=== PATIENT | male | born 1975 | race Caucasian/White ===

== ENCOUNTER 2023-09-22 10:43 | Emergency (ER) | payer MEDICAID, OTHER ==
[~2023-09-22] VITALS: Ht 170.2 cm; Wt 64.1 kg
[2023-09-22] MEDS ORDERED: NS 1,000 ML IV ONE (12:15)
[2023-09-22 12:55] LABS: BASO % 0.4 % (0.0-1.0); EOS # 0.1 10^3/uL (0.0-0.5); EOS % 1.5 % (0.0-3.0); HEMATOCRIT 36.8 % (42.0-52.0); HEMOGLOBIN 12.8 g/dl (13.5-17.5); LYMPH # 0.9 10^3/uL (1.5-5.0); LYMPH % 13.7 % (24.0-44.0); MEAN CORPUSCULAR HEMOGLOBIN 33.7 pg (27.0-33.0); MEAN CORPUSCULAR HGB CONC 34.8 g/dl (32.0-36.5); MEAN CORPUSCULAR VOLUME 96.8 fl (80.0-96.0); MONO # 0.4 10^3/uL (0.0-0.8); MONO % 5.1 % (2.0-8.0); NEUTROPHILS # 5.4 10^3/uL (1.5-8.5); PLATELET COUNT, AUTOMATED 221 10^3/uL (150-450); WHITE BLOOD COUNT 6.8 10^3/uL (4.0-10.0)
[2023-09-22 13:06] LABS: PARTIAL THROMBOPLASTIN TIME 33.8 SECONDS (24.8-34.2)
[2023-09-22 13:12] LABS: INR 1.17; PROTHROMBIN TIME 14.6 SECONDS (12.5-14.5)
[2023-09-22] MEDS ORDERED: ISOVUE-370 76% 100ML VIAL As Ordered ONE (14:07)
[2023-09-22 18:55] VITALS: BP 134/62; TEMP 100.7; O2SAT 97
[2023-09-22] MEDS ORDERED: ALBU2.5V10 NEB (18:55)
[2023-09-22] MEDS ORDERED: DOXY-443 PO (18:55)
[2023-09-22] MEDS ORDERED: ONDA4TAB6 PO (18:55)
[2023-09-22] MEDS ORDERED: BENZ200C70 PO (18:55)
[2023-09-23 13:32] LABS: ALBUMIN 4.2 G/DL (3.9-5.0); ALKALINE PHOSPHATASE 138 U/L (40-129); ALT/SGPT 17 U/L (1-41); AST/SGOT 18 U/L (5-40); BILIRUBIN,DIRECT < 0.2 MG/DL (0.1-0.4); BILIRUBIN,TOTAL < 0.7 MG/DL (0.2-1.3); LIPASE 21 U/L (13-60)
== END 2023-09-22 19:10 | disposition home or self-care (01) ==
LOC: M ED 10:43
DX: J18.9 Pneumonia, unspecified organism (principal); F32.A Depression, unspecified; Z79.52 Long term (current) use of systemic steroids; Z79.83 Long term (current) use of bisphosphonates; Z79.899 Other long term (current) drug therapy
CPT/HCPCS: 71046; 74177; 80047; 80076; 83690; 85025; 85610; 85730; 87040; 87486; 87581; 87633; 87798; 93005; 96360; 96361; 99284; Q9967

== ENCOUNTER → 2023-10-27 | Outpatient (REF) | payer OTHER ==
[~2023-10-27] MED LIST: ALBU2.5V10 NEB; BENZ200C70 PO; DOXY-443 PO; ONDA4TAB6 PO
[2023-10-27 14:10] LABS: CHLAMYDIA DNA AMPLIFICATION NEGATIVE (NEGATIVE); GC DNA AMPLIFICATION NEGATIVE (NEGATIVE)
== END ==
LOC: M LAB REF 11:51
PROVIDERS: ATTEND Nurse Practitioner Family
DX: R30.0 Dysuria (principal)

== ENCOUNTER 2024-01-12 08:56 | Outpatient (RCR) | payer OTHER | END 2024-01-29 | LOC: M PT 08:56 | PROVIDERS: ATTEND Nurse Practitioner Family | DX: M54.16 Radiculopathy, lumbar region (principal) ==

== ENCOUNTER 2024-01-12 10:06 | Emergency (ER) | payer OTHER | END 2024-01-12 11:04 | disposition left against medical advice (07) | LOC: M ED 10:06 | DX: Z53.21 Procedure and treatment not carried out due to patient leaving prior to being seen by health care provider (principal) ==

== ENCOUNTER 2024-06-13 11:16 | Emergency (ER) | payer OTHER ==
[~2024-06-13] VITALS: Ht 170.2 cm; Wt 75.3 kg
[~2024-06-13 11:16] MED LIST changes: +DOXY-323 PO; -DOXY-443 PO; +ONDA-282 PO; -ONDA4TAB6 PO
[2024-06-13 11:52] LABS: BASO % 0.6 % (0.0-1.0); EOS # 0.2 10^3/uL (0.0-0.5); HEMATOCRIT 43.7 % (42.0-52.0); HEMOGLOBIN 15.2 g/dl (13.5-17.5); LYMPH # 1.6 10^3/uL (1.5-5.0); MEAN CORPUSCULAR HEMOGLOBIN 34.2 pg (27.0-33.0); MEAN CORPUSCULAR HGB CONC 34.8 g/dl (32.0-36.5); MEAN CORPUSCULAR VOLUME 98.2 fl (80.0-96.0); MONO # 0.4 10^3/uL (0.0-0.8); MONO % 5.7 % (2.0-8.0); NEUTROPHILS % 64.4 % (36.0-66.0); PLATELET COUNT, AUTOMATED 166 10^3/uL (150-450); RED BLOOD COUNT 4.45 10^6/uL (4.30-6.10); WHITE BLOOD COUNT 6.3 10^3/uL (4.0-10.0)
[2024-06-13] MEDS ORDERED: PRAZ5CAP (11:56)
[2024-06-13] MEDS ORDERED: QUET300T2 (11:56)
[2024-06-13] MEDS ORDERED: DULO1CAP6 (11:56)
[2024-06-13 12:05] LABS: INR 0.96; PARTIAL THROMBOPLASTIN TIME 29.8 SECONDS (24.8-34.2); PROTHROMBIN TIME 12.5 SECONDS (12.5-14.5)
[2024-06-13 12:13] LABS: LIPASE 76 U/L (12-53)
[2024-06-13 12:15] LABS: ALBUMIN 4.2 G/DL (3.2-5.2); ALKALINE PHOSPHATASE 124 U/L (46-116); ALT/SGPT 35 U/L (7.0-40); AST/SGOT 24 U/L (<34); BILIRUBIN,DIRECT < 0.1 MG/DL (<0.4); BILIRUBIN,TOTAL 0.3 MG/DL (0.3-1.2); BLOOD UREA NITROGEN 16 MG/DL (9-23); CALCIUM LEVEL 9.2 MG/DL (8.5-10.1); CARBON DIOXIDE LEVEL 30 MMOL/L (20-31); CHLORIDE LEVEL 106 MMOL/L (98-107); CK-MB VALUE MASS < 1.0 NG/ML (<3.6); CPK CREATINE PHOSPHOKINASE 118 U/L (46-171); CREATININE FOR GFR 1.09 MG/DL (0.70-1.30); GLOMERULAR FILTRATION RATE > 60.0 (>60); GLUCOSE, FASTING 94 MG/DL (60-100); MB/CK RELATIVE INDEX 0.84 (< OR =4); POTASSIUM SERUM 4.6 MMOL/L (3.5-5.1); SODIUM LEVEL 139 MMOL/L (136-145)
[2024-06-13 12:17] LABS: FREE T4 1.07 NG/DL (0.89-1.76); THYROID STIMULATING HORMONE 5.907 uIU/ML (0.55-4.78)
[2024-06-13] MEDS ORDERED: ISOVUE-370 76% 100ML VIAL As Ordered ONE (12:31)
[2024-06-13] MEDS: MORPHINE 4 MG/ML 1ML VIAL IV ONE (13:20)
[2024-06-13 13:48] LABS: CK-MB VALUE MASS < 1.0 NG/ML (<3.6)
[2024-06-13 13:51] LABS: CPK CREATINE PHOSPHOKINASE 115 U/L (46-171); MB/CK RELATIVE INDEX 0.86 (< OR =4)
[2024-06-13] MEDS ORDERED: OMEP40CA4 PO (14:01)
[2024-06-13 14:46] VITALS: BP 122/64; TEMP 97.9; O2SAT 98
== END 2024-06-13 14:54 | disposition home or self-care (01) ==
LOC: M ED 11:16 → EDBD 11:16 → M ED 14:54
DX: R07.9 Chest pain, unspecified (principal); R10.9 Unspecified abdominal pain; I25.2 Old myocardial infarction; R00.1 Bradycardia, unspecified; F17.200 Nicotine dependence, unspecified, uncomplicated; F12.10 Cannabis abuse, uncomplicated; Z88.0 Allergy status to penicillin; Z88.5 Allergy status to narcotic agent; Z91.048 Other nonmedicinal substance allergy status; Z79.52 Long term (current) use of systemic steroids; Z79.899 Other long term (current) drug therapy
CPT/HCPCS: 71045; 71275; 74177; 80047; 80048; 80076; 82550; 82553; 83690; 83880; 84439; 84443; 84484; 85025; 85610; 85730; 93005; 93041; 94760; 96374; 99285; Q9967

== ENCOUNTER → 2024-07-12 | Outpatient (REF) ==
[~2024-07-12] MED LIST changes: +DULO1CAP6; +OMEP40CA4 PO; +PRAZ5CAP; +QUET300T2
== END ==
LOC: M PLAIMG 11:15
PROVIDERS: ATTEND Internal Medicine
DX: M54.50 Low back pain, unspecified (principal)

== ENCOUNTER 2024-09-15 10:36 | Emergency (ER) | payer OTHER ==
[~2024-09-15] VITALS: Ht 170.2 cm; Wt 72.7 kg
[~2024-09-15 10:36] MED LIST changes: -DOXY-323 PO; +DOXY-441 PO
[2024-09-15] MEDS ORDERED: GABA-1172 (10:57)
[2024-09-15] MEDS ORDERED: IBUP200T46 PO (10:58)
[2024-09-15 11:39] LABS: BASO # 0.1 10^3/uL (0.0-0.2); BASO % 0.6 % (0.0-1.0); EOS # 0.1 10^3/uL (0.0-0.5); EOS % 0.9 % (0.0-3.0); HEMATOCRIT 44.1 % (42.0-52.0); HEMOGLOBIN 15.6 g/dl (13.5-17.5); LYMPH % 11.7 % (24.0-44.0); MEAN CORPUSCULAR HEMOGLOBIN 33.8 pg (27.0-33.0); MEAN CORPUSCULAR HGB CONC 35.4 g/dl (32.0-36.5); MEAN CORPUSCULAR VOLUME 95.7 fl (80.0-96.0); MONO # 0.3 10^3/uL (0.0-0.8); MONO % 4.2 % (2.0-8.0); NEUTROPHILS # 6.7 10^3/uL (1.5-8.5); NEUTROPHILS % 82.4 % (36.0-66.0); PLATELET COUNT, AUTOMATED 169 10^3/uL (150-450); RED BLOOD COUNT 4.61 10^6/uL (4.30-6.10); WHITE BLOOD COUNT 8.1 10^3/uL (4.0-10.0)
[2024-09-15] MEDS: SUCRALFATE SUSP 1GM/10ML UD PO ONE (11:58)
[2024-09-15] MEDS: FAMOTIDINE 20 MG TAB PO ONE (11:58)
[2024-09-15 12:14] LABS: ALBUMIN 4.3 G/DL (3.2-5.2); BILIRUBIN,DIRECT 0.1 MG/DL (<0.4); BILIRUBIN,TOTAL 0.5 MG/DL (0.3-1.2); TOTAL PROTEIN 7.5 G/DL (5.7-8.2)
[2024-09-15 13:01] VITALS: BP 145/67; TEMP 97.4; O2SAT 97
[2024-09-15 13:27] LABS: C REACTIVE PROTEIN QUANTITATIV < 0.40 MG/DL (<1.0); CK-MB VALUE MASS < 1.0 NG/ML (<3.6)
[2024-09-15 13:38] LABS: CPK CREATINE PHOSPHOKINASE 125 U/L (46-171)
[2024-09-15] MEDS ORDERED: CARA1TAB6 PO (13:57)
[2024-09-15] MEDS ORDERED: PEPC1TAB5 PO (13:57)
[2024-09-15] MEDS ORDERED: ONDA-282 PO (13:57)
== END 2024-09-15 14:22 | disposition home or self-care (01) ==
LOC: M ED 10:36
DX: R07.9 Chest pain, unspecified (principal); R10.13 Epigastric pain; K27.9 Peptic ulcer, site unspecified, unspecified as acute or chronic, without hemorrhage or perforation; G40.909 Epilepsy, unspecified, not intractable, without status epilepticus; J44.9 Chronic obstructive pulmonary disease, unspecified; F17.200 Nicotine dependence, unspecified, uncomplicated; Z88.0 Allergy status to penicillin; Z88.8 Allergy status to other drugs, medicaments and biological substances; Z91.048 Other nonmedicinal substance allergy status; Z86.79 Personal history of other diseases of the circulatory system; Z90.49 Acquired absence of other specified parts of digestive tract; Z79.83 Long term (current) use of bisphosphonates; Z79.899 Other long term (current) drug therapy

== ENCOUNTER → 2024-12-09 | Outpatient (REF) | payer OTHER ==
[~2024-12-09] MED LIST changes: +CARA1TAB6 PO; +GABA-1172; +IBUP200T46 PO; +PEPC1TAB5 PO
[2024-12-10 14:41] LABS: BASO # 0.1 10^3/uL (0.0-0.2); BASO % 0.8 % (0.0-1.0); EOS # 0.2 10^3/uL (0.0-0.5); EOS % 2.1 % (0.0-3.0); HEMOGLOBIN 17.2 g/dl (13.5-17.5); LYMPH # 1.6 10^3/uL (1.5-5.0); LYMPH % 23.1 % (24.0-44.0); MEAN CORPUSCULAR HEMOGLOBIN 33.5 pg (27.0-33.0); MEAN CORPUSCULAR HGB CONC 34.4 g/dl (32.0-36.5); MEAN CORPUSCULAR VOLUME 97.3 fl (80.0-96.0); MONO # 0.4 10^3/uL (0.0-0.8); MONO % 5.6 % (2.0-8.0); NEUTROPHILS # 4.7 10^3/uL (1.5-8.5); NEUTROPHILS % 66.6 % (36.0-66.0); PLATELET COUNT, AUTOMATED 198 10^3/uL (150-450); RED BLOOD COUNT 5.14 10^6/uL (4.30-6.10); WHITE BLOOD COUNT 7.1 10^3/uL (4.0-10.0)
[2024-12-10 14:44] LABS: LIPASE 55 U/L (12-53)
[2024-12-10 14:46] LABS: ALBUMIN 5.1 G/DL (3.2-5.2); ALKALINE PHOSPHATASE 128 U/L (40-129); ALT/SGPT 33 U/L (7.0-40); AST/SGOT 24 U/L (<34); BILIRUBIN,TOTAL 0.5 MG/DL (0.3-1.2); BLOOD UREA NITROGEN 21 MG/DL (9-23); CALCIUM LEVEL 10.1 MG/DL (8.5-10.1); CARBON DIOXIDE LEVEL 29 MMOL/L (20-31); CHLORIDE LEVEL 102 MMOL/L (98-107); CREATININE FOR GFR 1.11 MG/DL (0.70-1.30); GLOMERULAR FILTRATION RATE > 60.0 (>60); GLUCOSE, FASTING 90 MG/DL (60-100); POTASSIUM SERUM 4.7 MMOL/L (3.5-5.1); SODIUM LEVEL 140 MMOL/L (136-145); TOTAL PROTEIN 9.1 G/DL (5.7-8.2)
== END ==
LOC: M LAB REF 12:34
PROVIDERS: ATTEND Nurse Practitioner Family
DX: R19.7 Diarrhea, unspecified (principal)

== ENCOUNTER 2024-12-21 10:11 | Emergency (ER) | payer OTHER ==
[~2024-12-21] VITALS: Ht 170.2 cm; Wt 76.0 kg
[~2024-12-21 10:11] MED LIST changes: -DULO1CAP6; +DULO1CAP6 PO; -PRAZ5CAP; +PRAZ5CAP PO
[2024-12-21] MEDS ORDERED: PANT40TA29 PO (10:20)
[2024-12-21 11:15] LABS: BASO % 0.4 % (0.0-1.0); EOS # 0.2 10^3/uL (0.0-0.5); EOS % 2.4 % (0.0-3.0); HEMOGLOBIN 15.5 g/dl (13.5-17.5); LYMPH # 1.4 10^3/uL (1.5-5.0); LYMPH % 18.2 % (24.0-44.0); MEAN CORPUSCULAR HEMOGLOBIN 34.3 pg (27.0-33.0); MEAN CORPUSCULAR HGB CONC 35.2 g/dl (32.0-36.5); MEAN CORPUSCULAR VOLUME 97.3 fl (80.0-96.0); MONO # 0.5 10^3/uL (0.0-0.8); MONO % 6.1 % (2.0-8.0); NEUTROPHILS # 5.4 10^3/uL (1.5-8.5); NEUTROPHILS % 72.8 % (36.0-66.0); PLATELET COUNT, AUTOMATED 167 10^3/uL (150-450); RED BLOOD COUNT 4.52 10^6/uL (4.30-6.10); WHITE BLOOD COUNT 7.4 10^3/uL (4.0-10.0)
[2024-12-21 11:48] LABS: LIPASE 38 U/L (12-53)
[2024-12-21 11:50] LABS: ALBUMIN 4.2 G/DL (3.2-5.2); ALKALINE PHOSPHATASE 121 U/L (40-129); ALT/SGPT 27 U/L (7.0-40); AST/SGOT 32 U/L (<34); BILIRUBIN,DIRECT < 0.1 MG/DL (<0.4); BILIRUBIN,TOTAL 0.3 MG/DL (0.3-1.2); BLOOD UREA NITROGEN 19 MG/DL (9-23); CALCIUM LEVEL 9.6 MG/DL (8.5-10.1); CARBON DIOXIDE LEVEL 30 MMOL/L (20-31); CHLORIDE LEVEL 105 MMOL/L (98-107); CREATININE FOR GFR 1.05 MG/DL (0.70-1.30); GLOMERULAR FILTRATION RATE > 60.0 (>60); GLUCOSE, FASTING 100 MG/DL (60-100); POTASSIUM SERUM 4.8 MMOL/L (3.5-5.1); SODIUM LEVEL 144 MMOL/L (136-145)
[2024-12-21] MEDS ORDERED: QUET200T2 PO (12:10)
[2024-12-21] MEDS ORDERED: ONDA-282 PO (12:10)
[2024-12-21] MEDS ORDERED: HOME MED LIST COMPLETE! XX SCH (12:10)
[2024-12-21] MEDS ORDERED: GABA-1171 PO (12:10)
[2024-12-21] MEDS ORDERED: FAMO20TA PO (12:10)
[2024-12-21] MEDS: ACETAMINOPHEN 500 MG TAB PO ONE (13:08)
[2024-12-21] MEDS ORDERED: ISOVUE-370 76% 100ML VIAL As Ordered ONE (13:31)
[2024-12-21] MEDS: MAALOX 30 ML SUSP *UDC PO ONE (14:27)
[2024-12-21 14:37] LABS: CK-MB VALUE MASS < 1.0 NG/ML (<3.6)
[2024-12-21 14:43] LABS: CPK CREATINE PHOSPHOKINASE 93 U/L (46-171); MB/CK RELATIVE INDEX 1.07 (< OR =4)
[2024-12-21 15:11] VITALS: BP 127/87; TEMP 98.7; O2SAT 99
== END 2024-12-21 15:13 | disposition home or self-care (01) ==
LOC: M ED 10:11
DX: R10.9 Unspecified abdominal pain (principal); R00.1 Bradycardia, unspecified; F19.11 Other psychoactive substance abuse, in remission; Z88.8 Allergy status to other drugs, medicaments and biological substances; Z91.048 Other nonmedicinal substance allergy status; Z79.899 Other long term (current) drug therapy; Z79.83 Long term (current) use of bisphosphonates
CPT/HCPCS: 36415; 74177; 80048; 80076; 82550; 82553; 83605; 83690; 84484; 85025; 93005; 99284; Q9967

== ENCOUNTER → 2025-04-07 | Outpatient (REF) | payer OTHER ==
[~2025-04-07] MED LIST changes: +FAMO20TA PO; +GABA-1171 PO; +PANT40TA29 PO; +QUET200T2 PO
[2025-04-07 14:37] LABS: LIPASE 181 U/L (12-53)
[2025-04-07 14:38] LABS: AMYLASE 163 U/L (30-118); C REACTIVE PROTEIN QUANTITATIV < 0.50 MG/DL (<1.0)
[2025-04-07 14:41] LABS: IMMUNOGLOBULIN A 165.4 MG/DL (40-350)
== END ==
LOC: M LAB REF 14:17
PROVIDERS: ATTEND Nurse Practitioner Family
DX: R19.7 Diarrhea, unspecified (principal); R14.0 Abdominal distension (gaseous)

== ENCOUNTER → 2025-08-25 | Outpatient (REF) | payer OTHER ==
[2025-08-25 17:41] LABS: C REACTIVE PROTEIN QUANTITATIV < 0.50 MG/DL (<1.0); CHOLESTEROL LEVEL 201 MG/DL (<200); CHOLESTEROL RISK RATIO 5.19 (<5); IRON (FE) 98 UG/DL (65-175); LDL CHOLESTEROL 132.3 MG/DL (<100); NON-HDL-C 162.3 MG/DL; PERCENT SATURATION 27.7 % (19.7-50.0); TRIGLYCERIDES LEVEL 150 MG/DL (<150)
[2025-08-25 17:47] LABS: BASO # 0.1 10^3/uL (0.0-0.2); BASO % 0.9 % (0.0-1.0); EOS # 0.2 10^3/uL (0.0-0.5); EOS % 3.4 % (0.0-3.0); LYMPH # 1.7 10^3/uL (1.5-5.0); LYMPH % 30.2 % (24.0-44.0); MONO # 0.3 10^3/uL (0.0-0.8); MONO % 5.9 % (2.0-8.0); NEUTROPHILS # 3.4 10^3/uL (1.5-8.5); NEUTROPHILS % 59.4 % (36.0-66.0); PLATELET COUNT, AUTOMATED 189 10^3/uL (150-450)
[2025-08-25 17:54] LABS: ERYTHROCYTE SEDIMENTATION RATE 14 mm/hr (0-15)
[2025-08-25 17:57] LABS: ESTIMATED AVERAGE GLUCOSE 120.0 MG/DL (60-110)
== END ==
LOC: M LAB REF 16:26
PROVIDERS: ATTEND Nurse Practitioner Family
DX: R19.7 Diarrhea, unspecified (principal); R11.2 Nausea with vomiting, unspecified; R14.0 Abdominal distension (gaseous); R42 Dizziness and giddiness; E66.3 Overweight

== ENCOUNTER 2025-09-19 04:55 | Emergency (ER) | payer OTHER ==
[~2025-09-19] VITALS: Ht 167.6 cm; Wt 72.7 kg
[2025-09-19 05:34] LABS: BASO # 0.0 10^3/uL (0.0-0.2); BASO % 0.4 % (0.0-1.0); EOS # 0.2 10^3/uL (0.0-0.5); EOS % 2.6 % (0.0-3.0); LYMPH # 1.6 10^3/uL (1.5-5.0); LYMPH % 18.7 % (24.0-44.0); MONO # 0.6 10^3/uL (0.0-0.8); MONO % 6.6 % (2.0-8.0); NEUTROPHILS # 6.0 10^3/uL (1.5-8.5); NEUTROPHILS % 71.5 % (36.0-66.0); PLATELET COUNT, AUTOMATED 182 10^3/uL (150-450)
[2025-09-19 06:00] LABS: ALT/SGPT 59 U/L (7.0-40); AST/SGOT 33 U/L (<34); CALCIUM LEVEL 9.4 MG/DL (8.5-10.1); CARBON DIOXIDE LEVEL 24 MMOL/L (20-31); CHLORIDE LEVEL 104 MMOL/L (98-107); CREATININE FOR GFR 0.98 MG/DL (0.70-1.30); GLOMERULAR FILTRATION RATE > 90.0 (>60); POTASSIUM SERUM 4.2 MMOL/L (3.5-5.1); SODIUM LEVEL 140 MMOL/L (136-145)
[2025-09-19 07:49] LABS: CK-MB VALUE MASS < 1.0 NG/ML (<3.6)
[2025-09-19 07:53] LABS: CPK CREATINE PHOSPHOKINASE 87 U/L (46-171)
[2025-09-19] MEDS: MAALOX 30 ML SUSP *UDC PO ONE (08:01)
[2025-09-19 08:02] LABS: INR 0.98
[2025-09-19] MEDS: LIDOCAINE VISCOUS 2% SOLN 15 ML UDC PO ONE (08:02)
[2025-09-19] MEDS ORDERED: PRAZ1CAP46 PO (08:07)
[2025-09-19] MEDS ORDERED: DICY-61 PO (08:07)
[2025-09-19] MEDS ORDERED: QUET100T2 PO (08:07)
[2025-09-19] MEDS ORDERED: HOME MED LIST COMPLETE! XX SCH (08:10)
[2025-09-19] MEDS: ALBUTEROL SULFATE 2.5 MG/0.5 ML INH CONCENTRATE NEB SOLN INH ONE (08:12)
[2025-09-19] MEDS: IPRATROPIUM 0.5 MG/ALBUTEROL 2.5 MG INH SOL UD 3 ML NEB SCH (08:12)
[2025-09-19 08:34] LABS: CK-MB VALUE MASS < 1.0 NG/ML (<3.6)
[2025-09-19] MEDS: NS (Normal Saline) 0.9% 1,000 ML IV ONE (08:50)
[2025-09-19 09:34] LABS: CPK CREATINE PHOSPHOKINASE 97 U/L (46-171)
[2025-09-19 09:45] VITALS: BP 125/71
[2025-09-19] MEDS ORDERED: PRED20TA PO (09:45)
[2025-09-19 10:00] VITALS: TEMP 98.5; O2SAT 94
== END 2025-09-19 10:07 | disposition home or self-care (01) ==
LOC: M ED 04:55
DX: B34.8 Other viral infections of unspecified site (principal); J45.909 Unspecified asthma, uncomplicated; F17.200 Nicotine dependence, unspecified, uncomplicated; Z88.0 Allergy status to penicillin; Z88.5 Allergy status to narcotic agent; Z91.048 Other nonmedicinal substance allergy status; Z79.899 Other long term (current) drug therapy; Z79.52 Long term (current) use of systemic steroids
CPT/HCPCS: 71045; 80048; 80076; 82550; 82553; 83690; 83880; 84484; 85025; 85610; 85730; 87486; 87581; 87633; 87798; 93005; 93041; 94640; 94760; 96361; 96374; 99285; J2919

== ENCOUNTER → 2025-09-21 | Outpatient (REF) | payer OTHER ==
[~2025-09-21] MED LIST changes: +DICY-61 PO; +PRAZ1CAP46 PO; +PRED20TA PO; +QUET100T2 PO
[2025-09-21 16:53] LABS: BASO # 0.0 10^3/uL (0.0-0.2); BASO % 0.2 % (0.0-1.0); EOS # 0.1 10^3/uL (0.0-0.5); EOS % 0.6 % (0.0-3.0); LYMPH # 1.5 10^3/uL (1.5-5.0); LYMPH % 13.7 % (24.0-44.0); MONO # 0.6 10^3/uL (0.0-0.8); MONO % 5.9 % (2.0-8.0); NEUTROPHILS # 8.5 10^3/uL (1.5-8.5); NEUTROPHILS % 79.1 % (36.0-66.0); PLATELET COUNT, AUTOMATED 271 10^3/uL (150-450)
[2025-09-21 17:15] LABS: ALT/SGPT 42.0 U/L (7.0-40); AST/SGOT 24.0 U/L (<34); CALCIUM LEVEL 9.5 MG/DL (8.5-10.1); CARBON DIOXIDE LEVEL 27.0 MMOL/L (20-31); CHLORIDE LEVEL 106.0 MMOL/L (98-107); CREATININE FOR GFR 1.1 MG/DL (0.70-1.30); GLOMERULAR FILTRATION RATE 82.8 (>60); POTASSIUM SERUM 4.0 MMOL/L (3.5-5.1); SODIUM LEVEL 145.0 MMOL/L (136-145)
== END ==
LOC: M LAB REF 16:22
PROVIDERS: ATTEND Physician Assistant
DX: R19.5 Other fecal abnormalities (principal)